=== PATIENT | male | born 1955 | race Caucasian/White ===

== ENCOUNTER 2019-03-06 10:17 | Emergency (ER) | payer OTHER ==
[2019-03-06 11:33] VITALS: BP 152/71
--- NOTE | 2019-03-06 11:51 | UC ---
Back Pain HPI - HPI Summary HPI Summary: 63 yo male with LBP since early February (suspects about 3 weeks) onset from coughing hard had uri symptoms but since resolved no UTI symptoms - History of Current Complaint Chief Complaint: UCBackPain Stated Complaint: BACK PAIN Time Seen by Provider: 03/06/19 11:28 Hx Obtained From: Patient Onset/Duration: Gradual Onset, Lasting Days Timing: Constant Severity Initially: Severe Severity Currently: Severe Pain Intensity: 8 - at max/curretnly 4 Pain Scale Used: 0-10 Numeric Back Pain: Is Diffuse - left lower, Radiates To - left buttoxk Character: Aching, Throbbing, Spasmodic Aggravating Factor(s): Movement, Lifting, Bending, Cough Alleviating Factor(s): Rest, OTC Meds Associated Signs And Symptoms: Positive: Negative Full Body (No Head): 1 - pain 2 - radiates here - Allergies/Home Medications Allergies/Adverse Reactions: Allergies Allergy/AdvReac Type Severity Reaction Status Date / Time adhesive Allergy Rash Verified 03/06/19 11:22 Home Medications: Home Medications Aspirin [Aspir-Low] 81 mg PO DAILY 03/06/19 [History Confirmed 03/06/19] Cholecalciferol TAB* [Vitamin D TAB*] 400 unit PO DAILY 03/06/19 [History Confirmed 03/06/19] Losartan/Hydrochlorothiazide [Losartan Potassium/Hydroc 100-12.5 mg] 1 tab PO DAILY 03/06/19 [History Confirmed 03/06/19] Pentoxifylline CR TAB* [TRENtal CR TAB*] 400 mg PO BID 03/06/19 [History Confirmed 03/06/19] Rosuvastatin Calcium [Crestor] 20 mg PO DAILY 03/06/19 [History Confirmed ] PMH/Surg Hx/FS Hx/Imm Hx Previously Healthy: Yes - Surgical History Surgical History: Yes Surgery Procedure, Year, and Place: 1998- leg amputation - Family History Known Family History: Positive: Hypertension - Social History Alcohol Use: Daily Alcohol Amount: wine daily Substance Use Type: None Smoking Status (MU): Former Smoker When Did the Patient Quit Smoking/Using Tobacco: 1996 Review of Systems All Other Systems Reviewed And Are Negative: Yes Constitutional: Positive: Negative Skin: Positive: Negative Eyes: Positive: Negative ENT: Positive: Negative Respiratory: Positive: Negative Cardiovascular: Positive: Negative Gastrointestinal: Positive: Negative Genitourinary: Positive: Negative Motor: Positive: Negative Neurovascular: Positive: Negative Musculoskeletal: Positive: Myalgia - back Neurological: Positive: Negative Psychological: Positive: Negative Physical Exam Triage Information Reviewed: Yes Appearance: Well-Appearing, No Pain Distress, Well-Nourished Vital Signs: Initial Vital Signs Temp 98.5 F 03/06/19 11:26 Pulse 75 03/06/19 11:26 Resp 18 03/06/19 11:26 BP 152/71 03/06/19 11:26 Pulse Ox 99 03/06/19 11:26 Vital Signs Reviewed: Yes Eyes: Positive: Conjunctiva Clear ENT: Positive: Hearing grossly normal. Negative: Nasal congestion, Nasal drainage, Tonsillar exudate, Hoarse voice Neck: Positive: Supple, Nontender, No Lymphadenopathy Respiratory: Positive: Lungs clear, Normal breath sounds, No respiratory distress, No accessory muscle use Cardiovascular: Positive: RRR, No Murmur, Pulses Normal Musculoskeletal: Positive: ROM Intact, No Edema, Other: - right leg BKA Neurological: Positive: Alert Psychological Exam: Normal Skin Exam: Normal Back Pain Course/Dx - Differential Dx/Diagnosis Provider Diagnosis: Acute lumbar myofascial strain Discharge - Sign-Out/Discharge Documenting (check all that apply): Patient Departure All imaging exams completed and their final reports reviewed: No Studies - Discharge Plan Condition: Stable Disposition: HOME Prescriptions: Cyclobenzaprine (NF) [Cyclobenzaprine 5 MG (NF)] 5 - 10 mg PO TID PRN #30 tab PRN Reason: Spasms - Back Patient Education Materials: Muscle Spasm (ED) Referrals: Devika Kramer MD [Primary Care Provider] - 6 Days - Billing Disposition and Condition Condition: STABLE Disposition: Home
== END 2019-03-06 11:59 | disposition home or self-care (01) ==
LOC: UCCORT 10:17
DX: S39.012A Strain of muscle, fascia and tendon of lower back, initial encounter (principal); Z91.048 Other nonmedicinal substance allergy status; Z79.82 Long term (current) use of aspirin; Z87.891 Personal history of nicotine dependence; X58.XXXA Exposure to other specified factors, initial encounter
CPT/HCPCS: 99202; G0463